=== PATIENT | male | born 1975 | race Caucasian/White ===

== ENCOUNTER 2016-02-29 01:52 | Emergency (ER) | payer BC ==
[2016-02-29] MEDS ORDERED: KETOROLAC 60 MG/2 ML VIAL IM ONE (02:55)
== END 2016-02-29 03:37 | disposition home or self-care (01) ==
LOC: ER 01:52
DX: M79.672 Pain in left foot (principal); M79.671 Pain in right foot
CPT/HCPCS: 36415; 80053; 82550; 84439; 84443; 84550; 85025; 96372